=== PATIENT | male | born 1965 ===

== ENCOUNTER 2025-04-10 09:15 | Day surgery (SDC) | payer OTHER ==
[2025-04-02 11:20] LABS: URINE APPEARANCE Clear; URINE BILIRRUBIN Negative (NEGATIVE); URINE BLOOD Negative; URINE COLOR Yellow; URINE GLUCOSE Negative (NEGATIVE); URINE KETONE Negative (NEGATIVE); URINE LEUKOCYTE Negative; URINE NITRATE Negative; URINE PROTEIN Negative (NEGATIVE); URINE UROBILINOGEN 0.2 E.U./dl
[2025-04-02 11:21] LABS: BASO % 1.1 % (0.1-1.2); EOS # 0.57 (0.04-0.54); EOS % 9.2 % (0.7-7.0); LYMPH # 2.05 (1.18-3.74); LYMPH % 33.2 % (19.3-53.1); MEAN PLATELET VOLUME 9.30 fl (9.4-12.4); MONO # 0.71 (0.24-0.82); MONO % 11.5 % (4.7-12.5); NEUT # 2.75 (1.56-6.13); NEUT % 44.7 % (34.0-71.1); RED CELL DISTRIBUTION WIDTH 12.3 % (11.6-14.4)
[2025-04-02 11:33] LABS: URINE BACTERIA 2.3 uL (0.0-1933); URINE CAST 0.14 uL (0.0-1.40); URINE EPITHELIAL CELLS 1.2 uL (0.0-38.8); URINE RBC 1.0 uL (0.0-20.8); URINE WBC 0.9 uL (0.0-23.2)
[2025-04-02 11:41] VITALS: BP 124/87
[2025-04-02 11:46] LABS: ALT/SGPT 54.0 U/L (12-78); AST/SGOT 26.0 U/L (15-37); BILIRUBIN TOTAL 2.3 mg/dL (0.3-1.2); BUN CREA RATIO 13.0 (7.0-25.0); CREATININE SERUM 1.26 mg/dL (0.70-1.30); GFR 58.78; GLOBULINA 3.1 G/DL (2.4-3.5); GLUCOSE FASTING 96.0 mg/dL (65-100); INR 1.04; OSMOLALITY SERUM 285.0 MOSM/KG (275-295)
[~2025-04-10] VITALS: Ht 188 cm; Wt 88.5 kg
[~2025-04-10 09:15] MED LIST: ATORVASTATIN CA10 MG PO; ZESTORETIC 10-1 EACH PO
[2025-04-10] MEDS ORDERED: BUPIVACAINE HCL 30 ML VIAL IJ ONE (13:45)
[2025-04-10] MEDS ORDERED: CEFAZOLIN SODIUM 1,000 MG VIAL IV SCH (13:45)
[2025-04-10] MEDS ORDERED: MORPHINE SULFATE 4 MG/ML VIAL IV ONE (14:00)
== END 2025-04-10 16:00 | disposition home or self-care (01) ==
LOC: CIR.AMB 09:15
PROVIDERS: ATTEND Orthopaedic Surgery
DX: M25.421 Effusion, right elbow (principal); M65.831 Other synovitis and tenosynovitis, right forearm; M24.821 Other specific joint derangements of right elbow, not elsewhere classified; M67.931 Unspecified disorder of synovium and tendon, right forearm